=== PATIENT | female | born 1995 | race Two or more races ===

== ENCOUNTER 2021-02-21 08:47 | Emergency (ER) | payer MEDICAID ==
[~2021-02-21] VITALS: Ht 162.6 cm; Wt 64.4 kg
[~2021-02-21 08:47] MED LIST: LIDOcaine 1% W/epiNEPHrine 1:100,000 20ml vial ONE
[2021-02-21 09:22] VITALS: BP 102/68
[2021-02-21] MEDS ORDERED: SULF1TAB45 PO (12:09)
== END 2021-02-21 12:35 | disposition home or self-care (01) ==
LOC: ER 08:48
DX: L02.215 Cutaneous abscess of perineum (principal); Z79.2 Long term (current) use of antibiotics
CPT/HCPCS: 56405; 99283; 99284

== ENCOUNTER 2024-03-13 18:40 | Emergency (ER) | payer MEDICAID ==
[~2024-03-13] VITALS: Ht 162.6 cm; Wt 69.1 kg
[2024-03-13] MEDS ORDERED: POLOS EACHEYE (20:34)
[2024-03-13 20:43] VITALS: BP 108/64; PULSE 76; RESP 16; TEMP 97.6; O2SAT 98
== END 2024-03-13 20:45 | disposition home or self-care (01) ==
LOC: ER 18:40
DX: H10.9 Unspecified conjunctivitis (principal); Z79.899 Other long term (current) drug therapy
CPT/HCPCS: 99283